=== PATIENT | female | born 1980 | race Caucasian/White ===

== ENCOUNTER → 2016-12-06 | Day surgery (SDC) | payer OTHER ==
[~2016-12-06] VITALS: Ht 163.8 cm; Wt 57.6 kg
[~2016-12-06] MED LIST: ACETAMINOPHEN 650 MG SUPP As Ordered ONE; ACETAMINOPHEN 650 MG SUPP PR ONE; BUPIVACAINE HCL 0.5% 10 ML VIAL As Ordered ONE; GLYCOPYRROLATE INJ 0.2 MG/ML 2 ML VIAL As Ordered ONE; HYDROmorphone HCL 1 MG/ML SYRINGE (J1170) IV PRN; IBUPROFEN 800 MG TAB PO ONE; KETOROLAC 60 MG/2 ML VIAL (J1885) As Ordered ONE; LIDOCAINE 1% MDV 20ML VIAL SC PRN; LR 1,000 ML IV ONE; LR 1,000 ML IV SCH; LR 500 ML IV ONE; METOCLOPRAMIDE INJ 10MG/2ML VIAL (J2765) As Ordered ONE; MIDAZOLAM INJ 2 MG/2 ML VIAL (J2250) As Ordered ONE; NEOSTIGMINE 1MG/ML 5 ML SYRINGE (J2710) As Ordered ONE; ONDANSETRON 4MG/2ML VIAL (J2405) As Ordered ONE; ONDANSETRON 4MG/2ML VIAL (J2405) IV PRN; PERCOCET 5MG/325MG TAB PO PRN; PROPOFOL 200 MG/20 ML VIAL As Ordered ONE; ROCURONIUM BROMIDE 50 MG/5 ML VIAL As Ordered ONE; SCOPOLAMINE 1.5 MG TRANSDERMAL TOP ONE; TYLE500T78 PO; dexameTHASONE 4 MG/ML 1ML VIAL (J1100) As Ordered ONE; fentaNYL 100 MCG/2 ML INJECTION (J3010) As Ordered ONE; fentaNYL 100 MCG/2 ML INJECTION (J3010) IV PRN
[2016-12-06 08:13] LABS: MEAN CORPUSCULAR HEMOGLOBIN 30.7 pg (27.0-33.0); MEAN CORPUSCULAR HGB CONC 34.4 g/dl (32.0-36.5); MEAN CORPUSCULAR VOLUME 89.1 fl (80.0-96.0); RED CELL DISTRIBUTION WIDTH 12.6 % (11.5-14.5); WHITE BLOOD COUNT 6.2 K/mm3 (4.0-10.0)
[2016-12-06 08:41] LABS: ANION GAP 6 MEQ/L (8-16); BLOOD UREA NITROGEN 19 MG/DL (7-18); CALCIUM LEVEL 8.7 MG/DL (8.5-10.1); CARBON DIOXIDE LEVEL 28 MEQ/L (21-32); CHLORIDE LEVEL 102 MEQ/L (98-107); CREATININE FOR GFR 0.85 MG/DL (0.55-1.02); GLOMERULAR FILTRATION RATE > 60.0 (>60); GLUCOSE, FASTING 98 MG/DL (70-105); HCG, SERUM QUANTITATIVE < 1.0 MIU/ML; POTASSIUM SERUM 4.1 MEQ/L (3.5-5.1); SODIUM LEVEL 136 MEQ/L (136-145)
[2016-12-06 13:10] VITALS: BP 124/58
--- NOTE | 2016-12-11 12:17 | RO ---
DATE OF PROCEDURE: 12/06/2016 PREPROCEDURE DIAGNOSIS: Chronic pelvic pain, abnormal uterine bleeding. 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 OPERATION PROPOSED: Hysteroscopy, dilation and curettage (D and C), laparoscopy, stage grade vaporize endometriosis. OPERATION PERFORMED: Diagnostic laparoscopy. SURGEON: Dr. Philipp Canela HR SPECIALIST: Mary ANESTHESIA: General plus local anesthetic for intraperitoneal procedures. ESTIMATED BLOOD LOSS: Less than 20 mL. DESCRIPTION OF PROCEDURE: After adequate anesthesia, prepped and draped in the lithotomy position, acetaminophen suppository 1300 mg per rectum, Martinez catheter in the bladder draining clear urine. Sequentials on board. No antibiotics required. Weighted speculum in vagina. Single-tooth tenaculum on the anterior lip of the cervix which was fixed in the midline. Very stenotic looking cervix. We were unable to negotiate the cervical os no more than 1/2 cm under direct vision; therefore we were going to wait until we did the laparoscopy and under direct vision attempt to place a uterine elevator. We did leave the single-tooth tenaculum on the anterior lip of the cervix for manipulating instrument. Reprepping and draping, a small subumbilical incision was made. Direct 3 mm scope was applied through the clear view into the abdomen. No evidence of perforation, hemorrhage or bleeding. CO2 was infused at a flow rate of 14 mL per minute to a maximum of 15. Pressure was 14 [address] With [address] in [address], the scope was used and panoramic review of the right upper quadrant was normal. There was staining of the peritoneal service on the anterior abdominal wall of endometriosis. There was thickened plaques of endometriosis on both round ligaments on the right and the left side. Some of the plaques were dark brown, some were gil, some were black, deep seated indication that they have been there for persistent period of time. The anterior aspect of the bladder was clear. The uterus was fixed in a retroverted position with both ovaries showing bilateral endometriomas adherent to the posterior wall of the uterus and that was adherent to the cecum. We therefore did not attempt to put a dilator through the cervix as there would be quite likelihood of perforating through the uterus into the endometriomas and possibly into the bowel. We were able to manipulate around the uterus such that both ovaries appeared to be adherent in the midline posteriorly, both evidenced of endometriomas. The right uterosacral had some endometriotic spots on it. The ureter was noted to be normal. The deep cul-de-sac was clear. On the left side, there were spots of endometriosis. The left ovary appeared to be more dominant, evidence of endometrioma. The right tube appeared to be normal. The left tube seemed to be occluded in the mid section of the tube, it seemed to be bulged out. The fimbriated end were free, though, which gives the impression that there may be endometriosis in the tube or even tubal occlusion on that side. The upper left abdomen was normal. In view of the bilateral endometriomas adherent to the posterior aspect of the uterus and to the cecum and the significance of having stage IV endometriosis with significant pain, our plan of management is to discuss definitive or intermediate management with this patient. The intermediate management may be a 3-month period of Depo Lupron with Add-Back therapy and reevaluate with a laparoscopy with the plans of removing any residual endometriosis in the ovarian tissue and/or hydrotubation of the tubes in order to see if there is patency if the patient wishes to have children. If the patient has finished her childbearing, our plan of management would be such that there would be definitive treatment in the form of hysterectomy, bilateral endometriomas removal and removal of the tubes for reducing incidence of ovarian cancer with paying particular attention to the bowel that is adherent to the endometriomas. Preparation time with Depo Lupron and Add-Back therapy would be ideal to soften these up in order to help elicit surgical planes. With instrument and pad count correct, the 3 mm port on the right side, the mainstem port was removed, superficial stitches were placed with Marcaine 0.25% and Dermabond. The single-tooth tenaculum was removed, the Martinez catheter was removed and the patient was taken to recovery in good condition. Copy To: Aleena Gu OB
== END ==
LOC: M SDC 07:33
PROVIDERS: ATTEND Obstetrics & Gynecology
DX: R10.2 Pelvic and perineal pain (principal); N93.9 Abnormal uterine and vaginal bleeding, unspecified; N80.3 Endometriosis of pelvic peritoneum; N80.1 Endometriosis of ovary; N80.0 Endometriosis of uterus; K21.9 Gastro-esophageal reflux disease without esophagitis; Z88.5 Allergy status to narcotic agent; Z88.8 Allergy status to other drugs, medicaments and biological substances
CPT/HCPCS: 36415; 49320; 80048; 84702; 85027; J1100; J1885; J2250; J2405; J2710; J2765; J3010

== ENCOUNTER 2017-03-14 10:30 | Inpatient (IN) | payer OTHER ==
[~2017-03-14] VITALS: Ht 162.6 cm; Wt 59.0 kg
[~2017-03-14 10:30] MED LIST changes: -ACETAMINOPHEN 650 MG SUPP As Ordered ONE; -ACETAMINOPHEN 650 MG SUPP PR ONE; -BUPIVACAINE HCL 0.5% 10 ML VIAL As Ordered ONE; -GLYCOPYRROLATE INJ 0.2 MG/ML 2 ML VIAL As Ordered ONE; -HYDROmorphone HCL 1 MG/ML SYRINGE (J1170) IV PRN; -IBUPROFEN 800 MG TAB PO ONE; -KETOROLAC 60 MG/2 ML VIAL (J1885) As Ordered ONE; -LIDOCAINE 1% MDV 20ML VIAL SC PRN; -LR 1,000 ML IV ONE; -LR 1,000 ML IV SCH; -LR 500 ML IV ONE; -METOCLOPRAMIDE INJ 10MG/2ML VIAL (J2765) As Ordered ONE; -MIDAZOLAM INJ 2 MG/2 ML VIAL (J2250) As Ordered ONE; -NEOSTIGMINE 1MG/ML 5 ML SYRINGE (J2710) As Ordered ONE; -ONDANSETRON 4MG/2ML VIAL (J2405) As Ordered ONE; -ONDANSETRON 4MG/2ML VIAL (J2405) IV PRN; -PERCOCET 5MG/325MG TAB PO PRN; -PROPOFOL 200 MG/20 ML VIAL As Ordered ONE; -ROCURONIUM BROMIDE 50 MG/5 ML VIAL As Ordered ONE; -SCOPOLAMINE 1.5 MG TRANSDERMAL TOP ONE; -dexameTHASONE 4 MG/ML 1ML VIAL (J1100) As Ordered ONE; -fentaNYL 100 MCG/2 ML INJECTION (J3010) As Ordered ONE; -fentaNYL 100 MCG/2 ML INJECTION (J3010) IV PRN
[2017-04-03] MEDS ORDERED: MULTCHW14 PO (11:22)
[2017-04-03] MEDS ORDERED: CALC1TAB26 PO (11:22)
[2017-04-03] MEDS ORDERED: IRON1TAB PO (11:22)
[2017-04-03] MEDS ORDERED: IBUP-1022 PO (11:22)
--- NOTE | 2017-04-06 13:57 | HPE ---
DATE OF ADMISSION: 04/11/2017 This lady is a 37-year-old female who comes with a history of chronic pelvic pain, abnormal uterine bleeding. This has gone on for this many years now, and she was diagnosed with stage IV endometriosis, bilateral endometriomas, fixed ovaries to the posterior wall of the uterus and the rectum, a left tubal occlusion in the midsection, bilateral round ligament endometriosis, and staining on the peritoneum suggestive of endometriosis. She had a previous hysteroscopy, dilation and curettage (D and C), and diagnostic laparoscopy; and at that time, options were given to her for Depo Lupron with add-back therapy, residual re-evaluation laparoscopy in 3-6 months with chromotubation of tubes, if she wishes to maintain her . However, if not, because of the significance of the endometriosis and the endometriomas, it was recommended that she have a total abdominal hysterectomy (LEILANI), bilateral salpingectomy, bilateral excision of endometriomas, and if not, feasible bilateral oophorectomy for completeness. She had reviewed her options and elected to have LEILANI, bilateral salpingectomy, bilateral endometrioma removal. Risks and benefits of surgery were entertained, including hemorrhage, infection, perforation, , reoperation, injury to bowel, bladder, and other adjacent organs, reoperative procedure, and repair. Her past history is uneventful. She has had a diagnostic laparoscopy. She takes iron and vitamin supplements. ALLERGIES: She has allergies to CODEINE and MORPHINE, which are more reactive in vomiting as opposed to reactivity. The rest of the physical examination is unremarkable. She is normocephalic, atraumatic. Neck full range of motions. Pupils equal and reactive to light. Distal pulses are symmetric. No evidence of deep venous thrombosis (DVT), pulmonary embolism (PE),or superficial phlebitis. Lungs are clear bilaterally to bases. No wheezes or rhonchi. No costovertebral angle (CVA) tenderness. Abdomen has scar from previous laparoscopy. Pelvic examination as mentioned. Retroverted, retroflexed uterus. High anterior cervix. Cul-de-sac filled with bilateral endometriomas. She has no rashes, lesions, or pruritus. No arthralgia or myalgia. No complaints of cough, wheezes, shortness of breath, or dyspnea on exertion. No chest pain. Not bleeding. Neurologically complete. No incontinence, urgency, or frequency. She does have constipation. No diarrhea. No diabetic issues. Gynecology ([facility]) issues are stage IV endometriosis and abnormal uterine bleeding and cervical stenosis. SURGICAL HISTORY: Is laparoscopy. MEDICAL HISTORY: Noncontributory. FAMILY HISTORY: Noncontributory. She does not smoke, drink, or abuse drugs. No domestic violence, and she has good support from her partner. ON EXAMINATION: Today, her blood pressure is 124/78, respirations are 18, pulse 83, and temperature is 97.8. She is 5 feet 4 inches and weighs 130.2 pounds. After expressing understanding, signed and witnessed the consent form. She is booked for a surgical intervention at the next available opening.
[2017-04-11] VITALS (10 sets, daily range): BP systolic 105–143; BP diastolic 56–72
[2017-04-11] MEDS ORDERED: ACETAMINOPHEN 650 MG SUPP PR ONE (08:00)
[2017-04-11] MEDS ORDERED: LR 1,000 ML IV ONE (08:00)
[2017-04-11] MEDS ORDERED: cefoTEtan DISODIUM 2 GM in D5W MINI-BAG PLUS 100 ML IV ONE (08:15)
[2017-04-11] MEDS ORDERED: NITR100C2 (08:16)
[2017-04-11 08:19] LABS: MEAN CORPUSCULAR HEMOGLOBIN 30.4 pg (27.0-33.0); MEAN CORPUSCULAR HGB CONC 33.7 g/dl (32.0-36.5); MEAN CORPUSCULAR VOLUME 90.2 fl (80.0-96.0); RED CELL DISTRIBUTION WIDTH 12.4 % (11.5-14.5)
[2017-04-11] MEDS ORDERED: SCOPOLAMINE 1.5 MG TRANSDERMAL As Ordered ONE (08:41)
[2017-04-11 08:42] LABS: ANION GAP 4 MEQ/L (8-16); BLOOD UREA NITROGEN 18 MG/DL (7-18); CALCIUM LEVEL 9.3 MG/DL (8.5-10.1); CARBON DIOXIDE LEVEL 29 MEQ/L (21-32); CHLORIDE LEVEL 105 MEQ/L (98-107); CREATININE FOR GFR 0.84 MG/DL (0.55-1.02); GLOMERULAR FILTRATION RATE > 60.0 (>60); GLUCOSE, FASTING 101 MG/DL (70-105); POTASSIUM SERUM 4.3 MEQ/L (3.5-5.1); SODIUM LEVEL 138 MEQ/L (136-145)
[2017-04-11] MEDS ORDERED: SCOPOLAMINE 1.5 MG TRANSDERMAL TOP ONE (08:45)
[2017-04-11 08:48] LABS: CONTROL LINE UCG INT CTR LINE PRESENT
[2017-04-11] MEDS ORDERED: MIDAZOLAM INJ 2 MG/2 ML VIAL (J2250) As Ordered ONE (09:23)
[2017-04-11] MEDS ORDERED: PROPOFOL 200 MG/20 ML VIAL As Ordered ONE (09:23)
[2017-04-11] MEDS ORDERED: GLYCOPYRROLATE INJ 0.2 MG/ML 2 ML VIAL As Ordered ONE (09:23)
[2017-04-11] MEDS ORDERED: LIDOCAINE 2% INJ 100 MG/5 ML SDV (FOR ANES.) As Ordered ONE (09:23)
[2017-04-11] MEDS ORDERED: NEOSTIGMINE 10 MG/10 ML VIAL (J2710) As Ordered ONE (09:23)
[2017-04-11] MEDS ORDERED: ROCURONIUM BROMIDE 50 MG/5 ML VIAL/SYRINGE As Ordered ONE (09:23)
[2017-04-11] MEDS ORDERED: HYDROmorphone HCL 2 MG/ML 1ML VIAL (J1170) As Ordered ONE (09:23)
[2017-04-11] MEDS ORDERED: ONDANSETRON 4MG/2ML VIAL (J2405) As Ordered ONE ×2 (09:23→12:10)
[2017-04-11] MEDS ORDERED: dexameTHASONE 4 MG/ML 1ML VIAL (J1100) As Ordered ONE (09:23)
[2017-04-11] MEDS ORDERED: ACETAMINOPHEN 650 MG SUPP As Ordered ONE (09:24)
[2017-04-11] MEDS ORDERED: BUPIVACAINE HCL 0.5% 10 ML VIAL As Ordered ONE (09:24)
[2017-04-11] MEDS ORDERED: fentaNYL 100 MCG/2 ML INJECTION (J3010) As Ordered ONE ×2 (09:24→12:11)
[2017-04-11] MEDS ORDERED: ONDANSETRON 4MG/2ML VIAL (J2405) IV PRN ×2 (12:00→12:15)
[2017-04-11] MEDS ORDERED: oxyCODONE 5MG TAB PO ONE (12:00)
[2017-04-11] MEDS ORDERED: HYDROmorphone HCL 1 MG/ML SYRINGE (J1170) IV PRN (12:00)
[2017-04-11] MEDS ORDERED: LR 1,000 ML IV SCH ×2 (12:00→12:15)
[2017-04-11] MEDS ORDERED: oxyCODONE 5MG TAB As Ordered ONE (12:11)
[2017-04-11] MEDS ORDERED: zolPIDEM TARTRATE 5 MG TAB PO PRN (12:15)
[2017-04-11] MEDS: fentaNYL 100 MCG/2 ML INJECTION (J3010) IV PRN ×4 (12:21→12:36)
[2017-04-11] MEDS ORDERED: KETOROLAC 30 MG/ML VIAL (J1885) As Ordered ONE (12:40)
[2017-04-11] MEDS ORDERED: KETOROLAC 30 MG/ML VIAL (J1885) IV ONE (13:00)
[2017-04-11] MEDS: NORCO, ANEXSIA 5/325MG TABLET (HYDROcodone/ACETAMINOPHEN) PO PRN ×2 (15:58→22:07)
[2017-04-11 16:29] LABS: MEAN CORPUSCULAR HEMOGLOBIN 30.3 pg (27.0-33.0); MEAN CORPUSCULAR HGB CONC 34.1 g/dl (32.0-36.5); MEAN CORPUSCULAR VOLUME 88.8 fl (80.0-96.0); RED CELL DISTRIBUTION WIDTH 12.1 % (11.5-14.5); WHITE BLOOD COUNT 11.3 10^3/uL (4.0-10.0)
[2017-04-11] MEDS: NS 1,000 ML IV SCH (18:56)
[2017-04-12] VITALS: BP 108/57
[2017-04-12] MEDS: IBUPROFEN 800 MG TAB PO PRN ×3 (00:40→17:20)
[2017-04-12 04:00] VITALS: BP 105/57
[2017-04-12] MEDS: NORCO, ANEXSIA 5/325MG TABLET (HYDROcodone/ACETAMINOPHEN) PO PRN ×3 (04:06→20:52)
[2017-04-12] MEDS: NS 1,000 ML IV SCH (05:29)
[2017-04-12 08:00] VITALS: BP 107/63
[2017-04-12 12:00] VITALS: BP 114/68
[2017-04-12 16:00] VITALS: BP 111/56
[2017-04-12 20:00] VITALS: BP 112/64
[2017-04-13] VITALS: BP 102/58
[2017-04-13] MEDS: IBUPROFEN 800 MG TAB PO PRN ×2 (00:54→09:21)
[2017-04-13] MEDS: NORCO, ANEXSIA 5/325MG TABLET (HYDROcodone/ACETAMINOPHEN) PO PRN ×2 (03:06→09:21)
[2017-04-13 04:00] VITALS: BP 104/55
[2017-04-13 08:00] VITALS: BP 123/76
[2017-04-13] MEDS ORDERED: INFLUENZA QUADRIVALENT PF VACCINE 0.5ML SYRINGE (90686) IM ONE (09:00)
[2017-04-13] MEDS ORDERED: IBUP-1022 PO (10:29)
[2017-04-13] MEDS ORDERED: NORC1TAB4 PO (10:31)
[2017-04-13] MEDS ORDERED: IBUP80TA PO (10:32)
--- NOTE | 2017-04-16 09:17 | RO ---
DATE OF PROCEDURE: 04/11/2017 PREOPERATIVE DIAGNOSES: Stage IV endometriosis. Bilateral endometriomas. Urinary tract infection. POSTOPERATIVE DIAGNOSES: Stage IV endometriosis. Bilateral endometriomas. Urinary tract infection. OPERATION PROPOSED: Laparotomy, total abdominal hysterectomy (LEILANI) and bilateral salpingo-oophorectomy (BSO). OPERATION PERFORMED: Laparotomy, LEILANI/BSO, removal of peritoneal surface posterior cul-de-sac. SURGEON: Binh Canela MD USED CAR SALESPERSON: Rommel Gonzalez MD ANESTHESIA: General, plus local anesthetic for intraperitoneal procedures. ESTIMATED BLOOD LOSS: 120 mL. Antibiotic coverage appropriate, sequentials, acetaminophen suppository 1300 mg per rectum After adequate time-out, Martinez catheter in the bladder draining clear urine. Sequentials on board. Antibiotics on board. A Pfannenstiel incision was made two fingerbreadths above the symphysis pubis passing through abdominal layers securing hemostasis. Opening peritoneal cavity we noticed the uterus, which was cushioned by two large endometriomas fixed in the cul-de-sac posteriorly and fixed on the lateral peritoneal surfaces in the ureteric country. There was endometriotic spots on the round ligaments, on the anterior aspect of the uterus, on the cornual ends of the uterus in various stages of maturity. The uterus itself was fixed to the endometriomas bilaterally. We packed the bowel back, then with curved Emanuel's clamped, cut and ligated the round ligaments. Once these were done, the bladder was reflected well down anteriorly. The posterior leaf was taken down as well, then curved Emanuel's clamped, cut and ligating the uterine arteries. After which time, we excavated the posterior cul-de-sac of the two endometriomas. They came up with some degree of difficulty. It took us about 15 minutes to elevate the ovaries out of the cul-de-sac posteriorly. An inadvertently ruptured large chocolately amount of material was noted thick from both ovaries. With that soaked up, we then irrigated out making sure to try and contain the seeding of the endometriomas chocolately cysts. With that done and with both ovaries elevated out and the tubes, they were ligated off and sent under separate cover to pathology in order to make room for the rest of the procedure. We then noticed that the bowel and the sigmoid was heaped up onto the posterior aspect of the isthmic uterine junction. This was taken down gently but with gentle pressure, and we made sure there was no injury to the bowel at all on the right side. We then had the peritoneal surface strip and we could see the inferior epigastrics on both sides and the ureter as it was exposed because of the deepness and depth of the endometriomas stuck on the lateral kamara. We did identify both ureters moving on both sides pre and post procedure. Once this was done, we then clamped, cut and ligated the uterosacral ligaments and this allowed the uterus and cervix to be freed up and by subfascial technique elevated the cervix and uterus, circumscribing the vaginal mucosa, grasping the two angles and also the midline on posterior and anterior. We handed off as specimen for pathology. Each angle was sutured independently with a [id number], which secured hemostasis. Then, the vault line was closed with a running stitch along the anterior and posterior kamara. Once that was done and hemostasis was secured, we lavaged out the abdomen. We did not find any peritoneum to attach posteriorly. Therefore, we went ahead and put two pieces of Surgicel in the area between the rawness of the bowel and the posterior wall of the vagina. There was no evidence of active bleeding. We again identified the ureters at the brim. We removed the vaginal packs, identified no injury to the bowel and no endometriosis to the bowel. Then, the abdomen was closed, running stitch for the peritoneum, same for the fascia, interrupted subcu, Dexon to the skin with Marcaine 0.25%, 10 mL to the skin with Dermabond and Telfa. Then, the patient was sent to recovery in good condition.
== END 2017-04-13 10:50 | disposition home or self-care (01) | DRG 742 ==
LOC: M OR 04-11 07:38 → M PED 04-11 12:57
PROVIDERS: ADMIT Obstetrics & Gynecology; ATTEND Obstetrics & Gynecology
PROC: 0UT70ZZ Resection of Bilateral Fallopian Tubes, Open Approach (ICD-10-PCS; 2017-04-11)
PROC: 0UT90ZZ Resection of Uterus, Open Approach (ICD-10-PCS; 2017-04-11)
PROC: 0UTC0ZZ Resection of Cervix, Open Approach (ICD-10-PCS; 2017-04-11)
PROC: 0UBF0ZZ Excision of Cul-de-sac, Open Approach (ICD-10-PCS; 2017-04-11)
PROC: 0UT20ZZ Resection of Bilateral Ovaries, Open Approach (ICD-10-PCS; principal; 2017-04-11 08:50)
DX: N80.0 Endometriosis of uterus (principal); N39.0 Urinary tract infection, site not specified; N80.3 Endometriosis of pelvic peritoneum; N80.1 Endometriosis of ovary; N72 Inflammatory disease of cervix uteri; Z79.899 Other long term (current) drug therapy; Z88.5 Allergy status to narcotic agent

== ENCOUNTER → 2017-04-10 | Outpatient (REF) | payer OTHER ==
[~2017-04-10] MED LIST changes: +CALC1TAB26 PO; +IBUP-1022 PO; +IBUP80TA PO; +IRON1TAB PO; +MULTCHW14 PO; +NITR100C2; +NORC1TAB4 PO
[2017-04-10 12:59] LABS: MICROSCOPIC INDICATED? MAN YES (NO)
[2017-04-10 13:02] LABS: BACTERIA, URINE LARGE AMOUNT; HYALINE CAST, URINE NONE SEEN /lpf (0-1); MICROSCOPIC EXAM PERFORMED; SQUAMOUS EPITHELIAL CELL URINE SMALL AMOUNT /hpf (SMALL AMT); WBC, URINE 30-40 /hpf (0-3)
== END ==
LOC: M LAB REF 12:19
PROVIDERS: ATTEND Physician Assistant Medical
DX: N39.0 Urinary tract infection, site not specified (principal)